=== PATIENT | female | born 1990 | race Caucasian/White ===

== ENCOUNTER → 2020-06-29 | Outpatient (CLI) | payer OTHER ==
[~2020-06-29] MED LIST: IBU600 MG PO; PERCOCET 325 MG1 TA2 PO; PRENATAL; PRILOSEC10 MG PO; TRANDATE 100MG100 MG PO
== END | disposition still patient (30) ==
LOC: ZCOL.LAB
DX: Z20.828 Contact with and (suspected) exposure to other viral communicable diseases (principal)

== ENCOUNTER 2020-07-04 09:25 | Inpatient (IN) | payer OTHER ==
[2020-07-04] VITALS (26 sets, daily range): BP systolic 101–183; BP diastolic 67–105; PULSE 71–106; TEMP 97.5–98.1
[~2020-07-04] VITALS: Ht 154.9 cm; Wt 92.3 kg
--- NOTE | 2020-07-04 09:35 | NUR ---
PATIENT HERE FOR REPEAT SECTION. PATIENT CHANGED INTO GOWN, ON EFM, ASSESMENT COMPLETE, IV STARTED, PATIENT HERE WITH , PATIENT DENIES LEAKING OF FLUID, BLEEDING OR CONTRACTIONS. PATIENT WL ON SIDE. SERIAL BPS TAKEN. DR JOSHUA NOTIFENIO
[2020-07-04] MEDS ORDERED: PRILOSEC10 MG PO (09:54)
[2020-07-04] MEDS ORDERED: PRENATAL (09:54)
[2020-07-04 10:09] LABS: BASO % 0.1 % (0.0-2.0); EOS % 0.4 % (0-4.0); GRAN # 5.5 (1.4-6.5); GRAN % 71.2 % (42.2-75.2); HEMOGLOBIN 11.5 g/dl (12.5-16.0); LYMPH # 1.7 (1.2-3.4); LYMPH % 22.5 % (20.0-51.0); MEAN CELL VOLUME 85 fl (80.0-100.0); MEAN CORPUSCULAR HEMOGLOBIN 29 pg (27.0-31.0); MEAN CORPUSCULAR HGB CONC 34 g/dl (33.0-37.0); MEAN PLATELET VOLUME 10.1 fl (7.4-10.4); MONO # 0.4 (0.1-0.6); MONO % 5.2 % (1.7-9.3); PLATELET COUNT 321 K/mm3 (130-400); RED BLOOD COUNT 4.02 M/mm3 (4.10-5.30); REDCELL DISTRIBUTION WIDTH-CV 14.1 % (11.5-14.5)
[2020-07-04 10:11] LABS: HEMATOCRIT 34.1 % (37.0-47.0)
--- NOTE | 2020-07-04 10:30 | NUR ---
MINIMAL TO MODERATE VARIBILITY NOTED. PATIENT REPOSITONED X2
--- NOTE | 2020-07-04 11:25 | NUR ---
BPS 0945 174/101 PULSE 88 0950- 179/108, 85 0955 162/93, 83 1000-167/88, 80 188/111,80 1005-184/107,78 1010-171/84, 83 1015 190/102, 89 1020 178/96,82 [id number]/88, 77 1030 168/97, 77 1035 171/97,77 1040- 176/97, 74 1045- 173/102, 82 [id number]/83, 76,150/77,74 1055 153/83, 76 1100 155/85 73 1105 157/87, 75 [id number]/92 80 1115 164/89 76 1120- 162/88 78
[2020-07-05 00:35] VITALS: BP 132/74; PULSE 91; TEMP 98.8
[2020-07-05 04:30] VITALS: BP 135/84; PULSE 97; TEMP 98.1
[2020-07-05 05:56] LABS: HEMATOCRIT 27.9 % (37.0-47.0)
[2020-07-05 05:57] LABS: HEMOGLOBIN 9.2 g/dl (12.5-16.0)
[2020-07-05 08:36] VITALS: BP 145/92; PULSE 100; TEMP 98
--- NOTE | 2020-07-05 09:09 | NUR ---
Initial visit; Parents thanked for offering congratulations for the of their son. thanked family for choosing [facility].
[2020-07-05 11:45] VITALS: BP 144/91; PULSE 92; TEMP 98.8
[2020-07-05 15:24] VITALS: BP 132/76; PULSE 76; TEMP 98.1
[2020-07-05 20:30] VITALS: BP 144/91; PULSE 102; TEMP 98.3
[2020-07-06] MEDS ORDERED: TRANDATE 100MG100 MG PO (08:47)
[2020-07-06] MEDS ORDERED: PERCOCET 325 MG1 TA2 PO (08:47)
[2020-07-06] MEDS ORDERED: IBU600 MG PO (08:47)
[2020-07-06 09:25] VITALS: BP 145/83; PULSE 108; TEMP 98.3
[2020-07-06 13:45] VITALS: BP 146/86; PULSE 114; TEMP 98.4
[2020-07-06 16:00] VITALS: BP 139/82; PULSE 110; TEMP 98.4
[2020-07-06 20:10] VITALS: BP 148/80; PULSE 106; TEMP 98.6
[2020-07-06 22:15] VITALS: BP 143/72; PULSE 104
[2020-07-07 09:44] VITALS: BP 145/87; PULSE 99; TEMP 97.6
== END 2020-07-07 11:48 | disposition home or self-care (01) | DRG 788 ==
LOC: OB 09:25
PROVIDERS: ADMIT Obstetrics & Gynecology
PROC: 10D00Z1 Extraction of Products of Conception, Low, Open Approach (ICD-10-PCS; principal; 2020-07-04)
DX: O34.211 Maternal care for low transverse scar from previous cesarean delivery (principal); Z3A.39 39 weeks gestation of pregnancy; Z37.0 Single live birth; O16.5 Unspecified maternal hypertension, complicating the puerperium
CPT/HCPCS: J0360; J0690; J1885; J2175; J2405; J2590; J3010; J7120